=== PATIENT | male | born 1965 | race Caucasian/White ===

== ENCOUNTER 2017-08-12 08:02 | Day surgery (SDC) | payer OTHER, SELFPAY ==
[2017-07-28 17:02] VITALS: BMI 43.1
[2017-08-12 10:18] VITALS: BP 147/79; PULSE 79; RESP 16; TEMP 36.8; O2SAT 95; BMI 43.1
[2017-08-12] MEDS: LACTATED RINGERS 1,000 ML 42 ML IV ×2 (11:00→13:38)
--- NOTE | 2017-08-12 11:53 | PM.PREOP ---
Pre-operative Note Interval Note Pre-op Check: History & Physical Reviewed by Physician
[2017-08-12] MEDS: MIDAZOLAM 2 MG/2 ML VIAL IV ×2 (12:12→12:20)
--- NOTE | 2017-08-12 12:36 | SUR.PREOP ---
Block start time [] 1223. Monitoring initiated and maintained throughout procedure. Oxygen and medications given per anesthesiologist instructions. Patient remained stable throughout procedure, no adverse reactions noted. Block end time []1232.
[2017-08-12] MEDS: CEFAZOLIN VIAL 3 GM in SODIUM CHLORIDE 0.9% 100 ML 200 ML IV (12:50)
[2017-08-12] MEDS: SODIUM CHLORIDE IRRIG SOLUTION 3,000 ML, EPINEPHrine 1 MG IRR (13:09)
--- NOTE | 2017-08-12 13:27 | SUR.OPER ---
Lateral on padded OR bed with miranda bag positioner, head on pillow, gel axillary roll in place, bottom leg bent with gel pad under knee to foot, upper leg straight and supported with pillows. Operative arm secured in shoulder positioning suspension device. non-operative arm secured on padded arm board. Safety belt at hip, tape over blanket securing lower legs.
[2017-08-12] MEDS: BUPIVACAINE 0.25% (PF) 30 ML VIAL 20 ML INJ (14:25)
--- NOTE | 2017-08-12 14:34 | PM.OP.1 ---
Operative Date/Time/Diagnoses - Date of procedure: 08/12/17 Time of procedure: 14:34 Pre-op diagnosis: Rotator cuff tear right shoulder Partial thickness biceps tendon tear right shoulder Post-op diagnosis: same Procedure & Clinicians Procedure: Arthroscopic rotator cuff repair right shoulder Arthroscopic biceps tenotomy right shoulder Same procedure as scheduled: Yes Bottom Steep Tender: Qi Browning Anesthesia Type: General, Peripheral nerve block and Local Operative Notes Findings: The patient had a large rotator cuff tear involving the entire supraspinatus and a portion of the infraspinatus tendon. The tear was retracted 2-3 cm. The size of the tear was about 2 and 0.5 cm from anterior to posterior direction. There was also some degree of a split posteriorly. The rotator cuff could be mobilized and complete repair was obtained as noted below. There was mild prominence of the anterior acromion so small chromium plasty was performed. There is significant partial-thickness tearing of the biceps tendon greater than 1/2 the normal thickness. A biceps tenotomy was performed. Closure Type: primary Specimen(s): none sent Implants & Drains: Arthrex swivel lock anchors x2. Arthrex fiber tape x2. Applied: implant(s) Estimated Blood Loss (mL): 5 Blood products transfused: none Procedure in detail: The patient was taken the operative suite and placed under general anesthesia with a scalene nerve block and given prophylactic antibodies prior to surgery. The patient was then positioned in the lateral decubitus position on a beanbag and with an axillary roll. The arm was suspended with 10 pounds of weight. The acromion and coracoid as well as the expected portal sites were all marked. The shoulder was then injected with 20 mL of 1% lidocaine with epinephrine. The arm was then prepped and draped in usual sterile fashion. The joint was then filled with 20 mL of saline through the proposed posterior portal site. The posterior portal was then established and the scope placed bluntly into the glenohumeral joint. An anterior portal was then established from an outside in technique with a spinal needle. The glenohumeral joint was then inspected (see findings above). The scope was then switched to the subacromial space. A standard bursectomy and anterior/lateral chondroplasty was performed with a shaver and bur. The subacromial space was well decompressed. There was a large retracted rotator cuff tear. The tear was approximately 2.5 cm in size anterior to posterior. There was 2-3 mm of retraction. The tear could be mobilized back to the tuberosity fairly easily. The tissue was of reasonable quality but was relatively thin. The cuff was primarily torn up the tuberosity but there was also a component of a longitudinal tear posteriorly. There was significant tearing of the biceps tendon. A tenotomy was performed. The rotator cuff was repaired with 2 inverted mattress Arthrex fiber tape sutures. The sutures were secured to the lateral tuberosity with 2 Arthrex swivel lock anchors. The tear was able to be advanced about 1 cm beyond the medial articular surface. The lateral bone was debrided with a bur to make a bleeding surface. One of the simple sutures within the posterior slope lock anchor was then utilized to do a [id number] type repair of the posterior splint. This gave essentially complete repair of the tendon. The repair was accomplished without significant tension. The arthroscopy was then completed and the shoulder drained. The portal sites were closed with interrupted 3-0 nylon suture. Subacromial space was filled with 20 mL of 0.5% ropivacaine and 4 of morphine. Sterile gauze dressings were then applied. The shoulder was placed into a sling. The patient tolerated the procedure well and was returned recovery room in good condition. Complications: none Condition: stable Disposition: same day surgery Plan for aftercare: Rotator cuff protocol. Shoulder immobilizer with no active shoulder range of motion x6 weeks. Daily pendulum exercises. Daily hand, wrist and elbow range of motion. Clinic follow-up in 2 weeks.
[2017-08-12 14:38] VITALS: BP 111/79; PULSE 83; RESP 16; TEMP 36.3; O2SAT 92
[2017-08-12 14:48] VITALS: BP 111/71; PULSE 78; RESP 19; O2SAT 94
[2017-08-12 14:53] VITALS: BP 92/51; PULSE 75; RESP 18; O2SAT 93
[2017-08-12 15:03] VITALS: BP 105/58; PULSE 71; RESP 18; O2SAT 93
[2017-08-12 15:30] VITALS: BP 108/67; PULSE 70; RESP 16; TEMP 36.2; O2SAT 95
--- NOTE | 2017-08-12 15:59 | SUR.PHASEII ---
Pt d\c from Phase II at 1544 in stable condition. Pt was assisted to get dressed by Gregg. D/C instructions reviewed, all questions were answered and home prescription was sent home with Pt and Gregg.
== END 2017-08-12 15:44 | disposition home or self-care (01) ==
PROVIDERS: Visit Provider Orthopaedic Surgery
PROC: (CPT 29827; principal; 2017-08-12 10:45)
DX: M75.101 Unspecified rotator cuff tear or rupture of right shoulder, not specified as traumatic (principal); M25.311 Other instability, right shoulder; S46.211A Strain of muscle, fascia and tendon of other parts of biceps, right arm, initial encounter; E11.9 Type 2 diabetes mellitus without complications; Z79.84 Long term (current) use of oral hypoglycemic drugs; G47.33 Obstructive sleep apnea (adult) (pediatric); F17.210 Nicotine dependence, cigarettes, uncomplicated; I10 Essential (primary) hypertension; G89.18 Other acute postprocedural pain
CPT/HCPCS: 29827; 29828; 29826; 64415; 64450; J0171; J0360; J0690; J2250; J2405; J2704; J3010